=== PATIENT | female | born 1985 | race Caucasian/White ===

== ENCOUNTER 2016-09-04 20:56 | Emergency (ER) | payer MEDICAID, MEDICARE ==
[~2016-09-04] VITALS: Ht 165.1 cm; Wt 86.2 kg
[2016-09-04 21:28] VITALS: BP_SYST 156
--- NOTE | 2016-09-04 21:47 | NUR ---
Patient to ER bed 4 to gown for evaluation. Side rails up. Report given to SOTERO SOTO.
--- NOTE | 2016-09-04 21:50 | NUR ---
ER LEONA Lu at bedside evaluating the patient
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
[2016-09-04] MEDS ORDERED: KETOROLAC TROMETHAMINE 60 MG/2 ML VIAL IM ONE (22:00)
[2016-09-04] MEDS ORDERED: ALPRAZolam 0.25 MG TABLET PO ONE (22:00)
[2016-09-04 22:45] VITALS: BP_SYST 136
--- NOTE | 2016-09-04 22:45 | NUR ---
Patient given written and verbal discharge instructions and verbalizes understanding. ER [employer] Tabitha Gleason discussed with patient the results and treatment provided. Patient in stable condition. ID arm band removed. Rx of motrin & xanax given. Patient educated on pain management and to follow up with PMD. Pain Scale 0/10. Opportunity for questions provided and answered.
== END 2016-09-04 22:45 | disposition home or self-care (01) ==
LOC: SED 20:56
DX: M54.5 Low back pain (principal); F41.9 Anxiety disorder, unspecified
CPT/HCPCS: 81025; 93005; 96372; 99283; J1885